=== PATIENT | male | born 1990 | race Two or more races ===

== ENCOUNTER 2022-12-11 20:16 | Inpatient (IN) | payer OTHER, SELFPAY ==
[2022-12-11 20:59] VITALS: BP 145/78; PULSE 99; RESP 20; TEMP 36.8; O2SAT 98
[2022-12-11 21:01] VITALS: BMI 57.4
--- NOTE | 2022-12-11 23:00 | PC.ADMIT ---
Addendum entered by Shikha Garza RN 12/12/22 03:23: Patient has a history of HTN and states that he takes Propranolol but has not taken his medications in approximately 1 year Original Note: Larry is admitted to [facility] from [facility] on a CV for suicidal ideation and depression. He is alert and oriented X's 3 but easily distracted. his affect is flat and withdrawn. He denies auditory/visual hallucination and homicidal ideation but endorses depression, anxiety and suicidal ideation. He states that he feels better then he did at the other hospital. I was just having some really dark thoughts. patient stated multiple times during the admission what I really need is help getting on SSI and finding housing because I was staying with a friend but I really can't stay there because I'm not on the lease and they will get in trouble if I stay. I also need some help getting my things from [place]. patient states that he has not taken any medications in over 1 year and has no PCP, counselor or psychiatrist. His appearance is disheveled and the patient has perseveration about just need[ing] help with SSI patient oriented to the unit, all admission documents completed, plan of Care initiated
[2022-12-12 07:00] VITALS: BMI 57.2
--- NOTE | 2022-12-12 07:11 | HO.PM.IMCN ---
History of Present Illness Data of Consult Service Date: 12/12/22 Requesting physician: Portillo Villavicencio Primary Care Provider: None Physician HPI Reason for consult: medical h&p 32-year-old male with history of hypertension, depression and anxiety who is morbidly obese with BMI greater than 57 admitted to Psychiatry with consult placed hospitalist service for medical H&P. The patient reports that he is a former smoker and has not smoked any cigarettes or marijuana since 2018. He has also no longer consuming any alcohol. He has no physical complaints or acute medical issues at this time. Reviewed [facility] records from his ED stay and CBC, BMP were reassuring and urine tox screen was unremarkable. EKG showed normal sinus rhythm, rate 99, no ST/T-wave abnormalities. Review of Systems Review of Systems: Yes all other systems are reviewed and are negative [facility] Medical History Former smoker Morbid obesity HTN (hypertension) Social History Household Members: Friend(s) Housing: Apartment Housing Other:: can't stay there Patient Tobacco Use Status: Former Tobacco user Tobacco use type: Cigarette Smoked in Last 30 Days: No Patient Given Instructions on How to Stop Smoking: No (not needed) Second Hand Smoke Exposure: Yes Use of substances other than those prescribed or required for medical reasons: No Currently Displaying Signs/Symptoms of Drug Intoxication Withdrawal: No Any prior treatment program specific to substance use: No Have you been hit, kicked, punched, or otherwise hurt by someone within the past year? If so, by whom?: No Do you feel safe in your current relationship?: Yes Is there a partner from a previous relationship who is making you feel unsafe now?: No Are you made to feel afraid or neglected: No Advance Directives: No Advance Directives Information Provided: No Do you have thoughts of harming others: None Do you have a plan to hurt others: No Plan Recently lost weight without trying: No Eating poorly because of decreased appetite: No Nutrition Risks: No Nutritional Risk Poor oral hygiene: No Meds Allergies Allergy/AdvReac Type Severity Reaction Status Date / Time No Known Allergies Allergy Verified 12/11/22 20:44 Active Medications: Current Medications Acetaminophen (Acetaminophen 325 Mg Tablet) 650 mg PO Q6H PRN PRN Reason: Headache/Pain Mild Scale (1-3) Al Hydroxide/Mg Hydroxide (Magnesium Hydrox/Alum Hydrox 30 Ml Oral.Susp) 30 ml PO Q6H PRN PRN Reason: Heartburn/Nausea Hydroxyzine HCl (Hydroxyzine Hcl 25 Mg Tablet) 25 mg PO Q6H PRN PRN Reason: Anxiety Magnesium Hydroxide (Milk Of Magnesia 30 Ml Oral.Susp) 30 ml PO DAILY PRN PRN Reason: Constipation Trazodone HCl (Trazodone Hcl 50 Mg Tablet) 50 mg PO BEDTIME MRX1 PRN PRN Reason: Insomnia Home Medications Medication Instructions Recorded Confirmed Last Taken Type buspirone 10 mg PO BID 12/11/22 12/11/22 Unknown History propranolol 60 mg PO DAILY 12/11/22 12/11/22 Unknown History Physical Exam Vital Signs and Narrative: Vital Signs: Last Vital Signs Temp 98.2 F 12/11/22 20:59 Pulse 99 12/11/22 20:59 Resp 20 12/11/22 20:59 BP 145/78 H 12/11/22 20:59 Pulse Ox 98 12/11/22 20:59 O2 Del Method Room Air 12/11/22 20:59 BMI result Body Mass Index 57.4 Constitutional - Awake and Alert, No apparent distress Eyes - PERRLA, EOMI Cardiovascular - S1S2, RRR, No edema Respiratory - Normal lung expansion, Normal respiratory effort, No respiratory distress, CTA bilaterally Gastrointestinal - NT / ND; +BS; No rebound or guarding Extremities - no calf tenderness bilaterally, no swelling Skin - Warm/Dry Neurological - Alert & oriented x3, nystagmus in all directions, right eye strabimus, otherwise, CN II-XII in tact, 5/5 strength BUE and BLE Psychological - Appropriate affect Results Labs 12/12/22 08:43 Assessment and Plan (1) Routine medical exam: Status: Acute Plan 32-year-old male with history of hypertension, depression and anxiety who is morbidly obese with BMI greater than 57 admitted to Psychiatry with consult placed hospitalist service for medical H&P. #Mood disorder -plan per Psychiatry # hypertension -blood pressure is reasonably controlled -continue propranolol # morbid obesity with BMI greater than 57 -weight loss efforts discussed and encouraged #Chronic multidirectional nystagmus -no intervention needed at this time Thank you for allowing me to participate in this consult. Signing off at this time. Please do not hesitate to call for further questions. Time Spent With Patient Time: Total time managing care of this patient today ____ minutes.
--- NOTE | 2022-12-12 08:50 | P.HPPS_ITS ---
HPI Date of Service: 12/12/22 Chief Complaint: unspecified anxiety d/o, intellectual disability HPI Narrative: per crisis eval, pt was BIBA to their ED after being asked to leave a temporary living arrangement he had had. he reported SI earlier in the day, saying he had a h/o severe anxiety and depression and had not been able to take his medications for the past month, as he had not been able to fill them. he reported he is in process of moving from [place] to [place] and has been having a hard time accessing social services specialist such as SSI/SSDI and food stamps. he was requesting help with housing at the ED. broaches his h/o intellectual disability as well. he declined inpatient care of [facility] and expressed hilaria desire to discharge from ED and return to the apartment where he was no longer welcome. on interview with MD he reported his hope for this hospitalization was to help me comfort and calm down and to obtain housing. he was advised to engage in groups to learn and practice coping skills and that we would be able to refer him to a senior living for housing. he expressed the feeling that his previous regimen had been helpful to him and requested to restart it, which was agreed upon. he denied any symptoms of mental illness or any safety concerns. meds were ordered. Past Psychiatric History: hosps: pt initially says this is his first, until MD reminds him of recent hospitalization in [place] SA: denies SIB: h/o hitting himself or punching/slapping himself several times around 5th grade. HIB: denies outpt: none now. last therapy was several years ago Medical Evaluation Reviewed: Yes [facility] Medical History Former smoker Morbid obesity HTN (hypertension) Family History: mother - alzheimer's father - anxiety and depression Social History: [id number][place][id number]. has 13 brothers and sisters. homeless, unemployed, intellectually disabled. no social supports in the area. Substance History: tob - quit 2008 cannabis - quit 2008 alcohol - quit 2017 denies the use of other substances Trauma History: denies Diagnostics Vital Signs (24Hr): Vital Signs - 24 hr 12/11/22 20:59 Temperature 98.2 F Pulse Rate 99 Respiratory Rate 20 Blood Pressure 145/78 H Pulse Oximetry 98 Oxygen Delivery Method Room Air BMI result Body Mass Index 57.4 Labs 10/19/23 08:43 Meds/Allergies Meds Home Medications Medication Instructions Recorded Confirmed Type buspirone 10 mg PO BID 12/11/22 12/11/22 History propranolol 60 mg PO DAILY 12/11/22 12/11/22 History Allergies Allergies Allergy/AdvReac Type Severity Reaction Status Date / Time No Known Allergies Allergy Verified 12/11/22 20:44 Mental Status Exam Mental Status Exam Narrative: obese, calm, cooperative, poor hygiene, dressed in hospital [facility]. no PMA/PMR. coooperative. speech incr amount, nml rate, nml loudness, decr latency, nml prosody. thoughts digressive, circumstantial to tangential. affect constricted, normo-intense, non-labile. mood very relaxed. chill. denies SI/SIBI/HI/AVH. Assessment & Plan Assessment & Plan (1) Intellectual disability: Status: Acute Code(s): F79 - Unspecified intellectual disabilities (2) Homelessness: Status: Acute Code(s): Z59.00 - Homelessness unspecified (3) Depression, unspecified: Status: Acute Code(s): F32.A - Depression, unspecified Plan restart previous regimen at pt request: buspar 10 BID, lexapro 10 daily, and propranolol (will start at 20 BID and titrate as indicated). Patient educated on: medication risk/benefits Reason for continued inpatient stay Substantial Risk for: inability to function Statement Statement: I have reviewed the history and physical and performed a pertinent examination on my patient. No changes have occurred unless specified. If the History and Physical was not performed prior to admission, the Hospitalist's service will be consulted for completing the admission physical. Time Spent With Patient Time: Total time managing care of this patient today __75__ minutes.
[2022-12-12 08:55] VITALS: BP 138/70; PULSE 100; RESP 20; TEMP 36.3; O2SAT 92
[2022-12-12 09:28] LABS: Alanine Aminotransferase 23 U/L (0-40); Albumin Level 4.2 g/dL (3.5-5.0); Alkaline Phosphatase 70 U/L (39-117); Anion Gap 12 (12-20); Aspartate Amino Transferase 16 U/L (5-37); Bilirubin Total 0.6 mg/dL (0.0-1.0); Blood Urea Nitrogen 13 mg/dL (9-16); Calcium 9.9 mg/dL (8.4-10.2); Carbon Dioxide 25 mmol/L (22-29); Chloride 106 mmol/L (96-108); Cholesterol 142 mg/dL (<200); Creatinine Clr Calc Pharmacy 239.6; Estimated Glomerular Filt Rate > 60; Glucose Fasting 83 mg/dL (60-99); HDL Cholesterol 45 mg/dL (>40); LDL Cholesterol Calculated 88 mg/dL (<100); Potassium 4.1 mmol/L (3.3-5.1); Sodium 139 mmol/L (135-145); Total Protein 7.8 g/dL (6.5-8.0); Triglycerides 48 mg/dL (<150)
[2022-12-12 14:45] VITALS: BP 122/65; PULSE 88
[2022-12-12] MEDS: Escitalopram Oxalate 10 MG TABLET PO (14:48)
[2022-12-12] MEDS: Propranolol HCL 20 MG TABLET PO (14:48)
[2022-12-12] MEDS: Throat Lozenge, Medicated LOZENGE 1 LOZENGE MUCOUS MEM (16:51)
[2022-12-13 00:58] VITALS: BP 147/87; PULSE 72; RESP 18; TEMP 36.2; O2SAT 99
[2022-12-13] MEDS: Propranolol HCL 20 MG TABLET PO ×2 (01:05→08:48)
[2022-12-13] MEDS: busPIRone HCl 10 MG TABLET PO ×3 (01:05→23:00)
[2022-12-13 08:45] VITALS: BP 130/71; PULSE 80; RESP 20; TEMP 36; O2SAT 99
[2022-12-13] MEDS: Escitalopram Oxalate 10 MG TABLET PO (08:48)
--- NOTE | 2022-12-13 11:45 | HO.PSYCHPN ---
Subjective Subjective Date of Service: 12/13/22 Reason For Visit: unspecified anxiety d/o, intellectual disability Interim History: calm, cooperative. no complaints or requests. discusses plan to return to [place] to get his things after discharge and then present to a long-term for housing and help getting bus fare to [place]. states he is spending his time reading, chatty with peers, and talking on the phone with family and friends. per staff, declined to shower yesterday. dep 3, anx 2. sleeping well. Mental Status Exam Mental Status Exam Narrative: obese, calm, cooperative, poor hygiene, dressed in [place]. no PMA/PMR. coooperative. speech incr amount, nml rate, nml loudness, decr latency, nml prosody. thoughts digressive, circumstantial. affect constricted, normo-intense, non-labile. mood euthymic. no SI/SIBI/HI/AVH expressed. Diagnostics Vital Signs (24Hr): Vital Signs - 24 hr 12/12/22 14:45 12/13/22 00:58 12/13/22 08:45 Temperature 97.2 F 96.8 F Pulse Rate 88 72 80 Respiratory Rate 18 20 Blood Pressure 122/65 147/87 H 130/71 Pulse Oximetry 99 99 Oxygen Delivery Method Room Air Room Air BMI result Body Mass Index 57.2 Labs 12/12/22 08:43 Labs: Laboratory Results - last 48 hr 12/12/22 08:43 Sodium 139 Potassium 4.1 Chloride 106 Carbon Dioxide 25 Anion Gap 12 BUN 13 Creatinine 0.72 Estim Creat Clear Calc 239.6 Estimated GFR > 60 Fasting Glucose 83 Calcium 9.9 Total Bilirubin 0.6 AST 16 ALT 23 Alkaline Phosphatase 70 Total Protein 7.8 Albumin 4.2 Triglycerides 48 Cholesterol 142 LDL Cholesterol, Calc 88 HDL Cholesterol 45 Medications Medications Current Medications Acetaminophen (Acetaminophen 325 Mg Tablet) 650 mg PO Q6H PRN PRN Reason: Headache/Pain Mild Scale (1-3) Al Hydroxide/Mg Hydroxide (Magnesium Hydrox/Alum Hydrox 30 Ml Oral.Susp) 30 ml PO Q6H PRN PRN Reason: Heartburn/Nausea Benzocaine (Throat Lozenge, Medicated Lozenge) 1 lozenge MUCOUS MEM Q2H PRN PRN Reason: Sore Throat Last Admin: 12/12/22 16:51 Dose: 1 lozenge Buspirone HCl (Buspirone Hcl 10 Mg Tablet) 10 mg PO BID [facility] Last Admin: 12/13/22 08:48 Dose: 10 mg Escitalopram Oxalate (Escitalopram Oxalate 10 Mg Tablet) 10 mg PO DAILY [facility] Last Admin: 12/13/22 08:48 Dose: 10 mg Hydroxyzine HCl (Hydroxyzine Hcl 25 Mg Tablet) 25 mg PO Q6H PRN PRN Reason: Anxiety Magnesium Hydroxide (Milk Of Magnesia 30 Ml Oral.Susp) 30 ml PO DAILY PRN PRN Reason: Constipation Propranolol HCl (Propranolol Hcl 20 Mg Tablet) 20 mg PO BID [facility]; Protocol Last Admin: 12/13/22 08:48 Dose: 20 mg Trazodone HCl (Trazodone Hcl 50 Mg Tablet) 50 mg PO BEDTIME MRX1 PRN PRN Reason: Insomnia Allergies Allergies Allergy/AdvReac Type Severity Reaction Status Date / Time No Known Allergies Allergy Verified 12/11/22 20:44 Assessment & Plan Assessment & Plan (1) Intellectual disability: Status: Acute Code(s): F79 - Unspecified intellectual disabilities (2) Homelessness: Status: Acute Code(s): Z59.00 - Homelessness unspecified (3) Depression, unspecified: Status: Acute Code(s): F32.A - Depression, unspecified Plan 12/12: restart previous regimen at pt request: buspar 10 BID, lexapro 10 daily, and propranolol (will start at 20 BID and titrate as indicated). 12/13: continue buspar and lexapro as ordered yesterday. change propranolol to LA formulation for ease of use. 60 mg daily. Reason for continued inpatient stay Substantial Risk for: inability to function Time Spent With Patient Time: Total time managing care of this patient today __25__ minutes.
[2022-12-13 19:25] VITALS: BP 147/63; PULSE 102; RESP 18; TEMP 36.3; O2SAT 98
[2022-12-14] MEDS: Escitalopram Oxalate 10 MG TABLET PO (08:26)
[2022-12-14] MEDS: Propranolol HCL LA 60 MG CAP.SA.24H PO (08:26)
[2022-12-14] MEDS: busPIRone HCl 10 MG TABLET PO ×2 (08:26→23:05)
[2022-12-14 09:29] VITALS: BP 118/78; PULSE 97; RESP 20; TEMP 36.3; O2SAT 96
--- NOTE | 2022-12-14 09:55 | P.PNPSI_ITS ---
Subjective Subjective Date of Service: 12/14/22 Reason For Visit: unspecified anxiety d/o, intellectual disability Interim History: Patient seen had a full affect come cooperative states he is feeling better tolerating medication trial without difficulty Medication Compliance: Yes Mental Status Exam Mental Status Exam Patient Appearance: Well Grooomed Patient Orientation: Person, Place, Time and Situation Level of Consciousness: Awake and Appropriate Patient Behavior: Appropriate Mood Description: Blunted Affect Description: Appropriate Patient Cognition Impaired: No Ability to Follow Directions: Good Speech Pattern: Clear Memory Description: Intact Hallucinations: None Delusions: Not Present Thought Process: Intact and Goal Oriented Thought Content: positive for Goal Oriented, positive for Preoccupation, negative for Suicidal Ideation or negative for Homicidal Ideation Depressive Symptoms: Increased Anxiety, Increased Irritability, Hopelessness and Difficulty Concentrating Judgement: Good Judgement and Insight: Pleasant future oriented has future plans Diagnostics Vital Signs (24Hr): Vital Signs - 24 hr 12/13/22 19:25 12/14/22 09:29 Temperature 97.3 F 97.3 F Pulse Rate 102 H 97 Respiratory Rate 18 20 Blood Pressure 147/63 H 118/78 Pulse Oximetry 98 96 Oxygen Delivery Method Room Air Room Air BMI result Body Mass Index 57.2 Labs 12/12/22 08:43 Medications Medications Current Medications Acetaminophen (Acetaminophen 325 Mg Tablet) 650 mg PO Q6H PRN PRN Reason: Headache/Pain Mild Scale (1-3) Al Hydroxide/Mg Hydroxide (Magnesium Hydrox/Alum Hydrox 30 Ml Oral.Susp) 30 ml PO Q6H PRN PRN Reason: Heartburn/Nausea Benzocaine (Throat Lozenge, Medicated Lozenge) 1 lozenge MUCOUS MEM Q2H PRN PRN Reason: Sore Throat Last Admin: 12/12/22 16:51 Dose: 1 lozenge Buspirone HCl (Buspirone Hcl 10 Mg Tablet) 10 mg PO BID [facility] Last Admin: 12/14/22 08:26 Dose: 10 mg Escitalopram Oxalate (Escitalopram Oxalate 10 Mg Tablet) 10 mg PO DAILY [facility] Last Admin: 12/14/22 08:26 Dose: 10 mg Hydroxyzine HCl (Hydroxyzine Hcl 25 Mg Tablet) 25 mg PO Q6H PRN PRN Reason: Anxiety Magnesium Hydroxide (Milk Of Magnesia 30 Ml Oral.Susp) 30 ml PO DAILY PRN PRN Reason: Constipation Propranolol HCl (Propranolol Hcl La 60 Mg Cap.Sa.24h) 60 mg PO DAILY [facility]; Protocol Last Admin: 12/14/22 08:26 Dose: 60 mg Trazodone HCl (Trazodone Hcl 50 Mg Tablet) 50 mg PO BEDTIME MRX1 PRN PRN Reason: Insomnia Allergies Allergies Allergy/AdvReac Type Severity Reaction Status Date / Time No Known Allergies Allergy Verified 12/11/22 20:44 Assessment & Plan Assessment & Plan (1) Intellectual disability: Status: Acute Code(s): F79 - Unspecified intellectual disabilities (2) Homelessness: Status: Acute Code(s): Z59.00 - Homelessness unspecified (3) Depression, unspecified: Status: Acute Code(s): F32.A - Depression, unspecified Plan 12/12: restart previous regimen at pt request: buspar 10 BID, lexapro 10 daily, and propranolol (will start at 20 BID and titrate as indicated). 12/13: continue buspar and lexapro as ordered yesterday. change propranolol to LA formulation for ease of use. 60 mg daily. 12/14/2022 Patient has been doing well Lexapro increased to 15 mg continue BuSpar propranolol Patient educated on: medication risk/benefits and therapeutic strategies Informed Consent: understands Reason for continued inpatient stay Substantial Risk for: rapid decompensation Time Spent With Patient Time: Total time managing care of this patient today ____ minutes.
[2022-12-14 20:23] VITALS: BP 140/69; PULSE 90; RESP 18; TEMP 36.1; O2SAT 96
[2022-12-15] MEDS: Propranolol HCL LA 60 MG CAP.SA.24H PO (08:21)
[2022-12-15] MEDS: Escitalopram Oxalate 10 MG TABLET PO (08:22)
[2022-12-15] MEDS: busPIRone HCl 10 MG TABLET PO ×2 (08:22→23:36)
[2022-12-15 08:58] VITALS: BP 131/71; PULSE 88; RESP 20; TEMP 36; O2SAT 99
--- NOTE | 2022-12-15 21:02 | HO.PSYCHPN ---
Subjective Subjective Date of Service: 12/15/22 Reason For Visit: unspecified anxiety d/o, intellectual disability Subjective Notes: Conditional Voluntary Interim History: Patient seen in psychiatric follow-up he is feeling calmer future oriented active in the milieu. Denies any self-harming thoughts not psychotic. He remains trying to arrange housing in a transitional place to live. He seems less pressured regarding this Medication Compliance: Yes Side effects from medications: No Attending Groups: Yes Mental Status Exam Mental Status Exam Patient Appearance: Well Grooomed Patient Orientation: Person, Place, Time and Situation Level of Consciousness: Awake and Appropriate Patient Behavior: Appropriate Mood Description: Appropriate and Relaxed Affect Description: Appropriate and Apprehensive Patient Cognition Impaired: No Ability to Follow Directions: Good Speech Pattern: Clear Memory Description: Intact Hallucinations: None Delusions: Not Present Thought Process: Intact and Goal Oriented Thought Content: positive for Goal Oriented, positive for Preoccupation, negative for Suicidal Ideation or negative for Homicidal Ideation Depressive Symptoms: Increased Anxiety, Increased Irritability, Hopelessness and Difficulty Concentrating Judgement: Good Judgement and Insight: Pleasant future oriented has future plans Diagnostics Vital Signs (24Hr): Vital Signs - 24 hr 12/15/22 08:58 Temperature 96.8 F Pulse Rate 88 Respiratory Rate 20 Blood Pressure 131/71 Pulse Oximetry 99 Oxygen Delivery Method Room Air BMI result Body Mass Index 57.2 Labs 12/12/22 08:43 Medications Medications Current Medications Acetaminophen (Acetaminophen 325 Mg Tablet) 650 mg PO Q6H PRN PRN Reason: Headache/Pain Mild Scale (1-3) Al Hydroxide/Mg Hydroxide (Magnesium Hydrox/Alum Hydrox 30 Ml Oral.Susp) 30 ml PO Q6H PRN PRN Reason: Heartburn/Nausea Benzocaine (Throat Lozenge, Medicated Lozenge) 1 lozenge MUCOUS MEM Q2H PRN PRN Reason: Sore Throat Last Admin: 12/12/22 16:51 Dose: 1 lozenge Buspirone HCl (Buspirone Hcl 10 Mg Tablet) 10 mg PO BID [facility] Last Admin: 12/15/22 08:22 Dose: 10 mg Escitalopram Oxalate (Escitalopram Oxalate 10 Mg Tablet) 10 mg PO DAILY [facility] Last Admin: 12/15/22 08:22 Dose: 10 mg Hydroxyzine HCl (Hydroxyzine Hcl 25 Mg Tablet) 25 mg PO Q6H PRN PRN Reason: Anxiety Magnesium Hydroxide (Milk Of Magnesia 30 Ml Oral.Susp) 30 ml PO DAILY PRN PRN Reason: Constipation Propranolol HCl (Propranolol Hcl La 60 Mg Cap.Sa.24h) 60 mg PO DAILY [facility]; Protocol Last Admin: 12/15/22 08:21 Dose: 60 mg Trazodone HCl (Trazodone Hcl 50 Mg Tablet) 50 mg PO BEDTIME MRX1 PRN PRN Reason: Insomnia Allergies Allergies Allergy/AdvReac Type Severity Reaction Status Date / Time No Known Allergies Allergy Verified 12/11/22 20:44 Assessment & Plan Assessment & Plan (1) Intellectual disability: Status: Acute Code(s): F79 - Unspecified intellectual disabilities (2) Homelessness: Status: Acute Code(s): Z59.00 - Homelessness unspecified (3) Depression, unspecified: Status: Acute Code(s): F32.A - Depression, unspecified Plan 12/12: restart previous regimen at pt request: buspar 10 BID, lexapro 10 daily, and propranolol (will start at 20 BID and titrate as indicated). 12/13: continue buspar and lexapro as ordered yesterday. change propranolol to LA formulation for ease of use. 60 mg daily. 12/14/2022 Patient has been doing well Lexapro increased to 15 mg continue BuSpar propranolol 12/15/2022 Continue BuSpar Lexapro discharge planning patient seems to have improving prospective Reason for continued inpatient stay Substantial Risk for: inability to function and rapid decompensation Time Spent With Patient Time: Total time managing care of this patient today ____ minutes.
[2022-12-15 23:33] VITALS: BP 147/89; PULSE 80; RESP 18; TEMP 35.8; O2SAT 99
[2022-12-16 07:34] VITALS: BP 125/66; PULSE 101; RESP 16; TEMP 36.2; O2SAT 98
[2022-12-16] MEDS: Propranolol HCL LA 60 MG CAP.SA.24H PO (08:49)
[2022-12-16] MEDS: Escitalopram Oxalate 10 MG TABLET PO (08:49)
[2022-12-16] MEDS: busPIRone HCl 10 MG TABLET PO ×2 (08:49→23:53)
--- NOTE | 2022-12-16 11:56 | P.DS_ITS ---
DS: Providers Provider Date of Service: 12/16/22 Date of admission: 12/11/22 20:16 Primary care physician: None Physician Consults: 12/11/22 10:58 Consult to Hospitalist Routine Comment: Consulting Provider: Hospitalist Reason For Exam: direct admission DS: Diagnosis Discharge Diagnosis (1) Intellectual disability: Status: Acute (2) Homelessness: Status: Acute (3) Depression, unspecified: Status: Acute DS: Medications Discharge Medications Home Medications: Previous Rx's Medication Instructions Recorded buspirone 10 mg tablet 10 mg PO BID 30 days #60 tabs 12/16/22 escitalopram oxalate 10 mg tablet 10 mg PO DAILY 30 days #30 tabs 12/16/22 propranolol 60 mg capsule,24 60 mg PO DAILY 30 days #30 caps 12/16/22 hr,extended release Mental Status Exam Mental Status Exam Narrative: obese, calm, cooperative, poor hygiene, dressed in hospital johnnys, malodorous. no PMA/PMR. cooperative. speech incr amount, nml rate, nml loudness, decr latency, nml prosody. thoughts digressive, circumstantial. affect constricted, normo-intense, non-labile. mood euthymic. no SI/SIBI/HI/AVH. Data Data Completed and Pending Completed studies during hospitalization [Text1]: 12/12/22 08:43 Sodium 139 Potassium 4.1 Chloride 106 Carbon Dioxide 25 Anion Gap 12 BUN 13 Creatinine 0.72 Estim Creat Clear Calc 239.6 Estimated GFR > 60 Fasting Glucose 83 Calcium 9.9 Total Bilirubin 0.6 AST 16 ALT 23 Alkaline Phosphatase 70 Total Protein 7.8 Albumin 4.2 Triglycerides 48 Cholesterol 142 LDL Cholesterol, Calc 88 HDL Cholesterol 45 DS: Summary Hospital Course Hospital Course: per 12/12 admission note: per crisis shira, pt was BIBA to their ED after being asked to leave a temporary living arrangement he had had. he reported SI earlier in the day, saying he had a h/o severe anxiety and depression and had not been able to take his medications for the past month, as he had not been able to fill them. he reported he is in process of moving from [place] to [place] and has been having a hard time accessing social problems specialist such as SSI/SSDI and food stamps. he was requesting help with housing at the ED. broaches his h/o intellectual disability as well. he declined inpatient care of [facility] and expressed hilaria desire to discharge from ED and return to the apartment where he was no longer welcome. on interview with MD he reported his hope for this hospitalization was to help me comfort and calm down and to obtain housing. he was advised to engage in groups to learn and practice coping skills and that we would be able to refer him to a long-term for housing. he expressed the feeling that his previous regimen had been helpful to him and requested to restart it, which was agreed upon. he denied any symptoms of mental illness or any safety concerns. meds were ordered. Past Psychiatric History: hosps: pt initially says this is his first, until MD reminds him of recent hospitalization in [place] SA: denies SIB: h/o hitting himself or punching/slapping himself several times around 5th grade. HIB: denies outpt: none now. last therapy was several years ago Medical Evaluation Reviewed: Yes [facility] Medical History Former smoker Morbid obesity HTN (hypertension) Family History: mother - alzheimer's father - anxiety and depression Social History: omani-indian. has 13 brothers and sisters. homeless, unemployed, intellectually disabled. no social supports in the area. Substance History: tob - quit 2008 cannabis - quit 2008 alcohol - quit 2017 denies the use of other substances Trauma History: denies Precis: 12/12: restart previous regimen at pt request: buspar 10 BID, lexapro 10 quique y, and propranolol (will start at 20 BID and titrate as indicated). 12/13: continue buspar and lexapro as ordered yesterday. change propranolol to LA formulation for ease of use. 60 mg daily. 12/14/2022 Patient has been doing well Lexapro increased to 15 mg continue BuSpar propranolol 12/15/2022 Continue BuSpar Lexapro discharge planning patient seems to have improving prospective 12/16: discharged as per plan. stable, safe. Time Spent with Patient Time attestation: Total time managing care of this patient today ____ minutes. Discharge Plan Discharge Anticipated Discharge Date/Time: 12/17/22 10:30 Patient Disposition: Long Term Discharge Diagnosis: Depressive Disorder NOS Homelessness Intellectual Disability Referrals: Larissa Cardona (Therapy) [Other] - 12/18/22 11:00 am (IN OFFICE APPOINTMENT -Once you attend this intake appointment, you will be set up with a medication management appointment and added to the waiting list for therapy. ) [facility] [Provider Group] - 1 Week Discharge Medications: New propranolol 60 mg Capsule,Extended Release 24 Hr 60 mg PO DAILY 30 Days Qty: 30 0RF Protocol: Hold for SBP/HR < HOLD for SBP < : 90 HOLD for HR < : 60 buspirone 10 mg Tablet 10 mg PO BID 30 Days Qty: 60 0RF escitalopram oxalate 10 mg Tablet 10 mg PO DAILY 30 Days Qty: 30 0RF Discontinued buspirone 10 mg PO BID Patient Comments: states he has not taken medication in 1 year propranolol 60 mg PO DAILY Rx Instructions: patient states he has not taken medication in 1 year Discharge Orders: Discharge Order (Routine); Ordered 12/17/22 Ordered By: Andres Leger Diet: Advance to usual diet Activity on Discharge: As tolerated Stand Alone Forms: Patient Portal Discharge page, Community Support Care Plan Goals: remain safe and stable in the outpatient treatment setting Health Concerns: morbid obesity Plan of Treatment: remain safe and stable in the outpatient treatment setting Assessment: not at imminent risk of harm to self or others Discharge Date/Time: 12/17/22 10:20
[2022-12-16] MEDS: Magnesium Hydrox/Alum Hydrox 30 ML ORAL.SUSP PO (12:22)
[2022-12-16 23:51] VITALS: BP 139/83; PULSE 92; RESP 18; TEMP 36.2; O2SAT 99
[2022-12-17] MEDS: Magnesium Hydrox/Alum Hydrox 30 ML ORAL.SUSP PO (06:59)
[2022-12-17] MEDS: busPIRone HCl 10 MG TABLET PO (08:31)
[2022-12-17] MEDS: Escitalopram Oxalate 10 MG TABLET PO (08:31)
[2022-12-17] MEDS: Propranolol HCL LA 60 MG CAP.SA.24H PO (08:31)
[2022-12-17 08:45] VITALS: BP 137/69; PULSE 83; RESP 16; TEMP 36.2; O2SAT 100
== END 2022-12-17 10:20 | disposition home or self-care (01) | DRG 754 ==
PROVIDERS: Psychiatry & Neurology Psychiatry; Admitting Provider Psychiatry & Neurology Psychiatry; Visit Provider Psychiatry & Neurology Psychiatry
DX: F32.A Depression, unspecified (principal); R45.851 Suicidal ideations; F79 Unspecified intellectual disabilities; F41.9 Anxiety disorder, unspecified; Z23 Encounter for immunization; Z87.891 Personal history of nicotine dependence; Z59.02 Unsheltered homelessness; Z79.899 Other long term (current) drug therapy
CPT/HCPCS: 36415; 80053; 80061; 90686

== ENCOUNTER → 2022-12-11 20:16 | Outpatient (BNV) | payer OTHER, SELFPAY | PROVIDERS: Admitting Provider Psychiatry & Neurology Psychiatry; Visit Provider Psychiatry & Neurology Psychiatry | DX: F33.2 Major depressive disorder, recurrent severe without psychotic features (principal); F79 Unspecified intellectual disabilities; Z59.00 Homelessness unspecified | CPT/HCPCS: 99231; 99232 ==

== ENCOUNTER → 2022-12-11 20:16 | Outpatient (BNV) | payer MEDICAID, SELFPAY | PROVIDERS: Admitting Provider Psychiatry & Neurology Psychiatry; Visit Provider Physician Assistant | DX: Z02.2 Encounter for examination for admission to residential institution (principal) | CPT/HCPCS: 99429 ==

== ENCOUNTER → 2022-12-11 20:16 | Outpatient (BNV) | payer OTHER, SELFPAY | PROVIDERS: Admitting Provider Psychiatry & Neurology Psychiatry; Visit Provider Psychiatry & Neurology Psychiatry | DX: F33.2 Major depressive disorder, recurrent severe without psychotic features (principal); F79 Unspecified intellectual disabilities; Z59.00 Homelessness unspecified | CPT/HCPCS: 90792; 99231; 99232; 99239 ==